=== PATIENT | female | born 1965 | race Caucasian/White ===

== ENCOUNTER → 2016-08-06 | Outpatient (CLI) | payer BC ==
[~2016-08-06] MED LIST: AMPH20TA2 PO; ASPI325T45 PO; ASPI81TA28 PO; BIOTPOW17 PO; CALC600T9 PO; FLUO20CA34 PO; FLUO20CA35 PO; IBUP-1277 PO; MAGN250T22 PO; MISCCAP8 PO; MULT-513 PO; MULT1CHW39 PO; OXYC1TAB3 PO; VITAMIN B COMPLEX SL
--- NOTE | 2016-08-07 13:28 | MAMMOGRAPHY REPORT ---
BILATERAL DIGITAL SCREENING MAMMOGRAM TOMOSYNTHESIS WITH CAD: 08/06/2016 CLINICAL HISTORY: Routine screening. TECHNIQUE: Breast tomosynthesis in addition to standard 2D mammography was performed. Current study was also evaluated with a Computer Aided Detection (CAD) system. COMPARISON: Comparison is made to exams dated: 08/04/2015 mammogram, 11/01/2009 mammogram - [facility], and 12/12/2007. BREAST COMPOSITION: There are scattered areas of fibroglandular density in both breasts. There has been involutional changes comparing to the more remote 2007 and 2009 mammograms. FINDINGS: No suspicious mass, architectural distortion or cluster of microcalcifications is seen. IMPRESSION: ACR BI-RADS CATEGORY 1: NEGATIVE There is no mammographic evidence of malignancy. A 1 year screening mammogram is recommended. The pa tient will receive written notification of the results. Approximately 10% of breast cancers are not detected with mammography. A negative mammographic report should not delay biopsy if a clinically suggestive mass is present. Fern Quiles M.D. ay/:08/06/2016 15:58:05 Packing Machine Can Feeder: Liv CUELLAR(Héctor)(Domo), [facility] letter sent: Normal 1/2 BI-RADS Code: ACR BI-RADS Category 1: Negative
== END | disposition home or self-care (01) ==
LOC: C.MAMM 10:43
PROVIDERS: ATTEND Family Medicine
DX: Z12.31 Encounter for screening mammogram for malignant neoplasm of breast (principal)

== ENCOUNTER → 2016-12-27 | Day surgery (SDC) | payer BC ==
[2016-12-04 15:22] VITALS: Ht 170.2 cm; Wt 76.4 kg
[~2016-12-27] VITALS: Ht 170.2 cm; Wt 76.4 kg
[~2016-12-27] MED LIST changes: -ASPI81TA28 PO; +BUPIVACAINE 0.25% 2.5MG/ML PF 10 ML VIAL ONE; -CALC600T9 PO; -FLUO20CA34 PO; -IBUP-1277 PO; +IOPAMIDOL INJ 61% 15 ML VIAL ONE; +LIDOCAINE HCL 1% MPF 5 ML VIAL ONE; -MAGN250T22 PO; -MISCCAP8 PO; -MULT-513 PO
--- NOTE | 2016-12-27 12:49 | History & Physical Bridge - SC ---
H&P Re-Evaluation Bridge Note: I have examined the patient, reviewed the History & Physical and in the interval since the performance of the History & Physical I have noted the following changes of clinical significance: No changes noted
[2016-12-27 13:10] VITALS: TEMP 37.1
--- NOTE | 2016-12-27 13:14 | Discharge Instructions ---
Discharge Instructions Date of Service Dec 27, 2016. Visit Reason for Visit: Sacroiliitis Discharge Discharge Diagnosis / Problem: low back pain Discharge Goals Goal(s): Decrease discomfort, Improve function Activity Recommendations Activity Limitations: resume your previous activity Anesthesia . Post Anesthesia Instructions: If you have had General Anesthesia or IV Sedation: * Do not drive today. * Resume driving when surgeon permits. * Do not make important decisions or sign legal documents today. * Call surgeon for: 1. Temperature elevations greater than 101 degrees F. 2. Uncontrollable pain. 3. Excessive bleeding. 4. Persistent nausea and vomiting. 5. Medication intolerance (nausea, vomiting or rash). * For nausea and vomiting use only clear liquids such as: tea, soda, bouillon until nausea subsides, then gradually increase diet as tolerated. * If you have any concerns or questions, call your surgeon's office. If physician is unavailable and it is an emergency, call 911 or go to the nearest emergency room. . Diet Recommendations Recommended Home Diet: resume previous diet Procedures Procedures Performed: Right saroiliac joint injection. Pending Studies Studies pending at discharge: no Medical Emergencies . Who to Call and When: Medical Emergencies: If at any time you feel your situation is an emergency, please call 911 immediately. . Non-Emergent Contact Non-Emergency issues call your: Specialist . . "Provider Documentation" section prepared by Mike Villar. .
[2016-12-27 13:21] VITALS: BP 127/79; PULSE 65; O2SAT 97
--- NOTE | 2016-12-27 13:54 | OPERATIVE REPORT ---
DATE OF OPERATION: 12/27/2016 PREOPERATIVE DIAGNOSIS: Right sacroiliitis. POSTOPERATIVE DIAGNOSIS: Same. PROCEDURE: Right sacroiliac joint injection under fluoroscopic guidance. SURGEON: Dr. Mike Villar. INDICATIONS: The patient is a 51-year-old white female who has right sacroiliitis that has not responded to conservative measures of therapy and medications. She has made the decision to proceed with an SI joint injection to provide her with relief of the sacroiliac pain. PHYSICAL EXAMINATION: Pleasant female seated comfortably. She has point tenderness to palpation over the right SI joint increased with pain with extension. She has normal lower extremity strength and a positive Kurtis maneuver on the right side. CONSENT: Verbal and written consent was obtained from the patient. Risks and benefits were reviewed. Risks include but are not limited to abscess and allergic reaction. She wishes to proceed. PROCEDURE: The patient was taken back to the special procedures room of the [facility] where she was maintained in a prone position. Backside was cleansed with Betadine x3 and a dry sterile dressing was applied. Fluoroscope was used to identify the right sacroiliac joint. The overlying skin was anesthetized with 3 mL of lidocaine 1% with a 25 gauge 1.5-inch needle. A 25 gauge 3.5 inch spinal needle was then directed into the SI joint. Isovue contrast 0.25 mL was injected, but showed it to be lateral to the joint. It was repositioned and then noted to be in the joint and then injected with another 0.25 mL of Isovue 300 contrast which then confirmed that the needle tip was within the joint. She then underwent injection after negative aspiration of 40 mg of Depo-Medrol and 1.5 mL of bupivacaine 0.25%. Injection was well tolerated. DISPOSITION: 1. The patient is taken out into the discharge recovery area where she will be discharged home once discharge criteria have been met. 2. Follow up in the [facility] office in 2-4 weeks. I attest to the content of the Intraoperative Record and any orders documented therein. Any exception s are noted below.
== END | disposition home or self-care (01) ==
LOC: X.SURG 12:17
PROVIDERS: ATTEND Physical Medicine & Rehabilitation
DX: M46.1 Sacroiliitis, not elsewhere classified (principal); M41.9 Scoliosis, unspecified

== ENCOUNTER → 2017-01-28 | Outpatient (CLI) | payer BC ==
[~2017-01-28] MED LIST changes: -BUPIVACAINE 0.25% 2.5MG/ML PF 10 ML VIAL ONE; -IOPAMIDOL INJ 61% 15 ML VIAL ONE; -LIDOCAINE HCL 1% MPF 5 ML VIAL ONE
== END | disposition home or self-care (01) ==
LOC: C.RDSM 13:48
PROVIDERS: ATTEND Physical Medicine & Rehabilitation
DX: M25.551 Pain in right hip (principal)

== ENCOUNTER 2020-09-16 04:51 | Observation (INO) ==
--- NOTE | 2020-08-25 16:21 | PAT Medication Instructions ---
Medication Instructions Date of Service August 25, 2020 Home Medications aspirin 81 mg tablet,delayed release 81 mg PO QAM fluoxetine 40 mg capsule 40 mg PO QAM dextroamphetamine-amphetamine 20 mg tablet (Adderall) 40 mg PO QAM hydrocodone 5 mg-acetaminophen 325 mg tablet 1 tab PO BID PRN melatonin 5 mg chewable tablet 5 mg PO HS PRN oxybutynin chloride 15 mg tablet,extended release 24 hr 15 mg PO QAM DO NOT take the morning of surgery dextroamphetamine-amphetamine 20 mg tablet (Adderall) 40 mg PO QAM oxybutynin chloride 15 mg tablet,extended release 24 hr 15 mg PO QAM Take morning of surgery With a small sip of water, OTHERWISE NOTHING TO EAT OR DRINK AFTER MIDNIGHT: aspirin 81 mg tablet,delayed release 81 mg PO QAM (continue as normal unless told otherwise by surgeon) fluoxetine 40 mg capsule 40 mg PO QAM hydrocodone 5 mg-acetaminophen 325 mg tablet 1 tab PO BID PRN (okay to take up to 4 hours prior to surgery if needed) Take evening before surgery hydrocodone 5 mg-acetaminophen 325 mg tablet 1 tab PO BID PRN (if needed) melatonin 5 mg chewable tablet 5 mg PO HS PRN (if needed) Other Notes If you have any questions please call us at [phone] or [phone] or or [phone]
--- NOTE | 2020-08-29 11:41 | Anesthesiology Consultation ---
Date of Service August 29, 2020 Assessment & Plan (1) Encounter for pre-operative examination: Chart Review Chart Review: Acceptable Risk for Surgery (pending response from PCP on hyperkalemia and preop Covid testing results ) and Patient seen in Pre Admission Testing - Wrote note to PCP re: hyperkalemia on preop labs- will await response Pt does not awareness during surgery -states she usually needs more medication Per PAT appointment 08/29/2020, patient return from [place] 08/24/2020. Patient drove via private vehiclestayed in private home/condowears proper PPE when required. No known Covid infection in the past 90 days. Patient vaccinated for Covid. No known Covid positive contacts or Covid related symptoms. Preop Covid testing scheduled 08/24/20= will await results. Educated on importance of self quarantining, social distancing and wearing mask in public both for the patient after Covid testing done Teaching & Discussion Pre-Anesthesia Teaching/Discussion Notes: Instructed NPO after midnight before surgery,except medications with 15 cc of water. Medication instructions provided according to the [facility] guidelines. History Surgery Operation Date: 09/16/20 09:05 Proposed Procedures p Right Total Hip Arthroplasty - Efrani Brennan MD Height/Weight Height: 5 ft 8 in Weight: 83.1 kg Allergies Allergy/AdvReac Type Severity Reaction Status Date / Time Penicillins Allergy Mild RASH Verified 08/19/20 15:04 Medications Home Medications Medication Instructions Recorded Confirmed Last Taken fluoxetine 40 mg capsule 40 mg PO QAM 07/12/20 08/29/20 Unknown dextroamphetamine-amphetamine 20 40 mg PO QAM 08/19/20 08/19/20 Unknown mg tablet (Adderall) hydrocodone 5 mg-acetaminophen 325 1 tab PO BID PRN 08/19/20 08/29/20 Unknown mg tablet melatonin 5 mg chewable tablet 5 mg PO HS PRN 08/19/20 08/29/20 Unknown oxybutynin chloride 15 mg 15 mg PO QAM 08/19/20 08/29/20 Unknown tablet,extended release 24 hr aspirin 325 mg tablet 325 mg PO DAILY 08/29/20 08/29/20 Unknown Past Medical History Medical History ADHD Stable Chronic back pain Depression Osteoarthritis Exercise / Class Metabolic Activity II 4-5 Yardwork/Stairs/Walk up hill (one flight of stairs- no chest pain or SOB) Past Family History Family History Uncle Prostate cancer Hypertension Grandmother Diabetes Father Diabetes Kidney disease Osteoarthritis Hypertension Mother Osteoarthritis Hypertension Other No family history of adverse response to anesthesia Past Surgical History Surgical History History of colonoscopy S/P appendectomy S/P laparoscopic hysterectomy Past Anesthesia History No Hx of Anesthesia Complications (with exception of one episode of awareness with colonoscopy ) and No Family Hx of Anesthesia Complications History of PONV No Hx of PONV and Hx of Motion Sickness (occ) Social History Smoking Status: Former smoker tobacco type: cigarettes Do You Dip or Chew Tobacco: No Smoking End Date: Quit 2015- smoked x 30 years - 1PPD Hx Alcohol Use: Yes alcohol intake frequency: a few times a week Hx Substance Use: Yes substance use type: marijuana Review of Systems Occ snoring - no witnessed apnea - no hx of sleep study Occ reflux- diet dependent- no routine medications Patient denies chest pain, shortness of breath, dyspnea on exertion, cough, wheezing, palpitations. No hx of seizures, stroke, OK. No hx of blood clots or blood transfusions Physical Exam Vital Signs VITALS BP 142/96 (pt will monitor at home and call PCP if elevated) P 68 TEMP 98.6 SP02 100% RESP 16 Constitutional no acute distress ENMT Mouth: no TMJ clicking Thyromental Distance: > or= 3.5 Finger Breadths (3.5) Mallampati Class: II Denies loose or missing teeth Neck neck extension not limited Respiratory normal respiratory effort; no respiratory distress Auscultation: lungs clear to auscultation bilaterally; no wheezes Cardiovascular Rate/Rhythm: regular rate and regular rhythm Heart Sounds: no murmur Vessels: no carotid bruit Musculoskeletal Spine: no pain with cervical ROM Extremities: extremities normal to inspection Psychiatric Orientation: alert Lab Results Anesthesia Preop Results Results Anesthesia Widget: WBC 7.11 K/uL (4.8-10.8) 08/29/20 Hgb 13.3 g/dL (12.0-16.0) 08/29/20 Hct 39.8 % (37-47) 08/29/20 Plt 279 K/uL (130-400) 08/29/20 Na 139 mmol/L (136-145) 08/29/20 K 5.6 mmol/L (3.5-5.1) H 08/29/20 Cl 104 mmol/L (98-107) 08/29/20 CO2 33 mmol/L (21-32) H 08/29/20 BUN 23 mg/dl (7-18) H 08/29/20 Creat 0.81 mg/dl (0.6-1.2) 08/29/20 Glucose Level 91 mg/dl (70-99) 08/29/20 PT 10.3 Seconds (9.0-12.0) 08/29/20 PTT 28.1 Seconds (21.0-31.0) 08/29/20 INR 1.0 (0.9-1.1) 08/29/20 Blood Type A Positive 08/29/20 Antibody Screen NEGATIVE 08/29/20 Lab Comments: Did write note to PCP regarding hyperkalemia Testing Electrocardiogram Date: 08/29/20 Findings: + NSR @ (65bpm) Normal EKG per cardio. Chest X-Ray Date: 08/29/20 Findings: + NAD
[2020-09-16] MEDS ORDERED: TRANEXAMIC ACID 1,000 MG **IV Pre-op IV SCH (06:00)
[2020-09-16] MEDS ORDERED: LR 60ML/HR IV SCH (06:00)
[2020-09-16] MEDS ORDERED: FAMOTIDINE 20 MG TAB PO SCH (06:00)
[2020-09-16] MEDS ORDERED: Scopolamine 1 MG TDSY TD SCH (06:00)
[2020-09-16] MEDS ORDERED: LR 500ML BOLUS, THEN 15ML/HR IV SCH (06:00)
[2020-09-16] MEDS ORDERED: ACETAMINOPHEN 500 MG TAB PO SCH (06:00)
[2020-09-16] MEDS ORDERED: GABAPENTIN 900 MG DOSE PO SCH (06:00)
[2020-09-16] MEDS ORDERED: ceFAZolin 2000MG 2,000 MG/15 ML SYR IV SCH (06:00)
[2020-09-16] MEDS ORDERED: METOCLOPRAMIDE HCL 10 MG TABLET PO SCH (06:00)
[2020-09-16] MEDS ORDERED: fentaNYL citrate 100 MCG/2 ML VIAL ONE (06:27)
[2020-09-16] MEDS ORDERED: PROPOFOL IV EMULSION 10 MG/ML 20 ML VIAL IV ONE ×3 (06:27→07:11)
[2020-09-16] MEDS ORDERED: MIDAZOLAM HCL 1 MG/ML 2ML VIAL ONE (06:27)
[2020-09-16] MEDS ORDERED: MoRPHine SULFATE PF 1 MG/ML 10 ML AMP/VIAL ONE (06:27)
[2020-09-16] MEDS ORDERED: BUPIVACAINE 0.5 % 5 MG/1 ML PF 10ML VIAL ONE (06:32)
[2020-09-16] MEDS ORDERED: EPINEPHrine INJ 1 MG/ML AMP ONE (06:51)
[2020-09-16] MEDS ORDERED: BUPIVACAINE 0.5 % 5 MG/1 ML MPF 30ML VIAL ONE (06:51)
--- NOTE | 2020-09-16 06:55 | History & Physical Bridge Note ---
Date of Service September 16, 2020 History & Physical Bridge Note I have examined the patient, reviewed the History & Physical and in the interval since the performance of the History & Physical I have noted the following changes of clinical significance: no changes noted
[2020-09-16] MEDS ORDERED: HYDROmorphone INJ 1 MG/ML SYRINGE IV PRN (07:21)
[2020-09-16] MEDS ORDERED: PHENYLEPHRINE 100MCG/ML 5ML SYR IV PRN (07:21)
[2020-09-16] MEDS ORDERED: LABETALOL HCL IV 5 MG/ML 20ML IV PRN (07:21)
[2020-09-16] MEDS ORDERED: MEPERIDINE HCL 25 MG/ML CARP/VIAL IV PRN (07:21)
[2020-09-16] MEDS ORDERED: ATROPINE SULFATE 0.1 MG/ML 10ML SYR IV PRN (07:21)
[2020-09-16] MEDS ORDERED: ONDANSETRON INJ 2 MG/ML 2 ML VIAL IV PRN (07:21)
[2020-09-16] MEDS ORDERED: ePHEDrine sulfate 50 MG/ML AMP IV PRN (07:21)
[2020-09-16] MEDS ORDERED: fentaNYL citrate 100 MCG/2 ML VIAL IV PRN (07:21)
--- NOTE | 2020-09-16 08:49 | Operative Report ---
Post Operative Report Pre & Post Diagnosis Operation Date: 09/16/20 07:00 Pre-Op Diagnosis: Right Hip Osteoarthritis Post-Op Diagnosis: Right Hip Osteoarthritis I identified the patient and participated in the time-out.: Yes Procedure Operation Date: 09/16/20 07:00 Actual Procedures p Right Total Hip Replacement(Right) - Efrain Brennan MD Surgeon Efrain Brennan MD Paralegal Internship MINERVA Bishop Estimated Blood Loss 200 Findings Consistent with Post-Op Diagnosis Operative findings revealed advanced right hip DJD. She had pretty significant joint effusion. Some small anterior acetabular osteophytes. She did have grade 4 change of the superior aspect of the femoral head and the acetabulum. Fluids 700 cc Specimens Right femoral head sent for pathology. Drains None Anesthesia Type Spinal MAC Complications none Disposition Accompanied Patient To Recovery: Yes Indications Patient is a 55-year-old fairly active female has had a long history of hip and back problems. She been through extensive conservative treatment for both issues. Over time she became more debilitated by her hip pain. She is fully aware that she got significant back issues as well. X-ray showed advanced hip arthritis. She elected proceed with surgical treatment. She was fully aware that this is not can affect her back problems. Description of Procedure Operative implants consist of: 1 Biomet G7 size 50 mm acetabular shell. 2. Biomet 6.5 cancellous acetabular screws 135 mm length by 30 mm length. 3. [place] hole passenger rate clerk. 4. Highly cross-linked polyethylene liner with a 50 mm outer diameter, 32 mm inner diameter with a fernandez placed inferior and posterior. 5. Carrillo Karaya size 9 KLA femoral stem. 6. +5/32 mm ceramic articular ball. The patient was taken to the operating, identified, and placed on the operating table supine position but a contractors were properly padded. IV antibiotics tried by anesthesia team. A spinal anesthetic and been implemented holding area. Peraza catheter was placed in sterile fashion. The patient then placed in the left lateral cubitus position. An axillary roll was placed. A Stulberg hip positioner was used for positioning. The right hip and leg were then prepped and draped in usual sterile fashion. Posterior lateral approach to the right hip was then performed to a curvilinear incision centered over the greater trochanter. Sharp dissection was carried through subcutaneous tissue down to the IT band gluteal fascia. The IT band gluteal fascia incised longitudinally in line with skin incision. She did have a pretty extensive grade track bursa which had to be resected. The posterior capsule and piriformis and external rotators were then released from the posterior aspect of the hip joint as a single layer. Great care was taken throughout the procedure protect the sciatic nerve at all times. The hip was internally rotated and dislocated. Femoral neck osteotomy cut was made with Final Cut 10 mm above the lesser trochanter. Femoral head was removed and sent for pathology. The femur was retracted anteriorly. Attention drawn the acetabulum. The acetabular labrum was excised. The pulvinar fat was excised. Sequential reaming the acetabular was then performed again with size 43 and progressing up to 49. I did reamed a little bit with a 50 reamer and then placed a 50 mm cup in about 40 degrees lateral opening and 20 degrees of anteversion. It was fixed with two 6.5 cancellous acetabular screws. Trial liner was placed. Some small anterior osteophytes removed anteriorly. Attention drawn the femur. The proximal femur was entered with a cookie-cutter followed by canal finder. I then broached begin the size 8 and progressing to a 9. She had a good cancellous envelope and the 9 broach with a nice and tight. We then trialed the hip. The +5 articular ball seem to recreate soft tissue tension and leg lengths equal. The hip was fully stable full extension and external rotation and flexion to 9 degrees internal rotation about 40 to 50 degrees. I did elect to place a fernandez inferior and posterior to maximize her stability in flexion. We elect to place these implants. All trial implants were removed. An apex hole passenger rate clerk was placed but highly cross-linked polyethylene liner with a fernandez placed inferior and posterior was impacted in position. A DePuy size 9 KLA femoral stem was impacted in position. +5/32 mm ceramic articular ball was placed. Hip was located once again found to be stable. Attention drawn toward closing. The wound was irrigated with copious also pulsatile lavage solution. I did inject locally with 60 cc of absent Marcaine with epinephrine. The posterior capsule and external rotators were then repaired through drill holes in the posterior trochanter with #2 Tycron suture. The IT band gluteal fascia then closed 1 PDS superior suture in a running fashion. Subcutaneous tissue was then closed with 2 layers the deep layer #2 Vicryl suture and subcutaneous tissues with 2 Dexon suture in a buried interrupted fashion the skin was closed skin martha. Leg was then cleaned and dried and a sterile dressing composed of Prevena VAC dressing was applied to the fairly thick soft tissue envelope. Patient was then transferred to the recovery room in stable condition. Patient tolerated procedure well and there were no complications. Elmer Bishop, my physician hospital aides and assistants teacher, was present for the entire procedure. His assistance was essential and required for appropriate patient positioning, prepping and draping, surgical exposure, performing the technical details of the operation, placement the implants, closure of the wound, and placement of the sterile bandage. I attest to the content of the Intraoperative Record and any orders documented therein. Any exceptions are noted below.
--- NOTE | 2020-09-16 09:05 | XRay Report ---
XR hip 1V RT w pelvis HISTORY: 55 years-old Female IN PACU - A/P PELVIS and LATERAL HIP right hip total joint arthroplast y COMPARISON: Hip radiographs 08/08/2020 TECHNIQUE: AP view of the pelvis with crosstable lateral view of the right hip FINDINGS: Right hip total joint arthroplasty. Lateral skin martha are noted along with expected postoperative soft tissue swelling and deep tissue air. No acute fracture, malalignment or unexpected opaque foreig n body. Mild left hip osteoarthritis. IMPRESSION: Right hip total joint arthroplasty with expected postoperative changes. ACT 112: Negative or not required by law. The above report was generated using voice recognition software. It may contain grammatical, syntax o r spelling errors. Electronically signed by: Héctor Clemens M.D. 09/16/2020 9:03 AM
--- NOTE | 2020-09-16 10:16 | Anesthesiology Progress Note ---
Date of Service September 16, 2020 Anesthesia Post Procedure Vital Signs Vital Signs: Temp Pulse Pulse Resp BP Pulse Ox 09/16/20 10:05 64 12 127/80 96 09/16/20 09:55 54 L 13 111/86 95 09/16/20 09:45 54 L 12 135/84 95 09/16/20 09:35 48 L 11 L 121/83 95 09/16/20 09:25 50 L 13 116/88 97 09/16/20 09:15 43 L 14 136/72 99 09/16/20 09:05 75 20 132/84 100 09/16/20 08:55 49 L 11 L 119/65 97 09/16/20 08:45 53 L 10 L 115/71 98 09/16/20 08:39 36.2 C L 100 H 14 128/80 96 09/16/20 05:35 36.6 C 56 L 20 123/87 96 Pain Intensity Right Hip: Pain Intensity: 0 Transfer of Care Handoff Completed per policy Notes Mental Status: alert / awake / arousable Patient Amnestic to Procedure: Yes Nausea / Vomiting: adequately controlled Pain: adequately controlled Airway Patency, RR, SpO2: stable & adequate BP & HR: stable & adequate Hydration State: stable & adequate Neuraxial Anesthesia: was administered and sensory block is resolving Anesthetic Complications: no major complications apparent and Pt Satisfied with anesthetic care
[2020-09-16] MEDS ORDERED: MAGNESIUM HYDROXIDE SUSP 30 ML UDC PO PRN (11:06)
[2020-09-16] MEDS ORDERED: diphenhydrAMINE Capsule 25 MG CAP PO PRN (11:06)
[2020-09-16] MEDS ORDERED: NALOXONE HCL 0.4 MG/1 ML VIAL/CARP IV PRN (11:06)
[2020-09-16] MEDS ORDERED: ALUMINUM/MAGNESIUM SUSP 30 ML UDC PO PRN (11:06)
[2020-09-16] MEDS ORDERED: METOCLOPRAMIDE HCL INJ 5 MG/ML 2 ML VIAL IV PRN (11:06)
[2020-09-16] MEDS ORDERED: bisacodyL 10 MG SUPP PR PRN (11:06)
[2020-09-16] MEDS ORDERED: HYDROmorphone INJ 0.5 MG/0.5 ML SYR IV PRN (11:06)
[2020-09-16] MEDS ORDERED: MELATONIN 3 MG TAB PO PRN (11:15)
[2020-09-16] MEDS: SODIUM CHLORIDE 0.9% 1000ML 1,000 ML IV SCH ×2 (11:19→20:18)
[2020-09-16] MEDS: KETOROLAC 30 MG/ML VIAL IV SCH ×2 (11:59→17:11)
[2020-09-16] MEDS: MULTIVITAMIN TAB PO SCH (11:59)
[2020-09-16] MEDS: OXYBUTYNIN CHLORIDE XL 5 MG TABCR PO SCH (11:59)
[2020-09-16] MEDS: ASPIRIN 81 MG ECTAB PO SCH ×2 (12:00→21:08)
[2020-09-16] MEDS: FLUoxetine HCL 20 MG CAP PO SCH (12:00)
[2020-09-16] MEDS: DOCUSATE SODIUM 100 MG CAP PO SCH ×2 (12:00→21:08)
[2020-09-16] MEDS: AMPHETAMINE ASP/SULF/DEXTRAMPH 10 MG TAB PO SCH (12:19)
[2020-09-16] MEDS: ACETAMINOPHEN 500 MG TAB PO SCH ×2 (12:58→21:09)
[2020-09-16] MEDS ORDERED: TRANEXAMIC ACID / 0.7% NACL 1,000 MG/100 ML BAG IV SCH (15:00)
[2020-09-16] MEDS: oxyCODONE HCL IR 5 MG TAB (IMMEDIATE RELEASE) PO PRN ×2 (15:33→22:15)
[2020-09-16] MEDS: ASCORBIC ACID 500 MG TAB PO SCH (15:34)
[2020-09-16] MEDS: Scopolamine CHECK PATCH PLACEMENT SCH (15:35)
[2020-09-16] MEDS: ceFAZolin 2000MG 2,000 MG/15 ML SYR IV SCH (15:38)
[2020-09-16] MEDS: ONDANSETRON INJ 2 MG/ML 2 ML VIAL IV PRN (15:47)
[2020-09-16] MEDS ORDERED: SENNA 8.6 MG TAB PO SCH (21:00)
[2020-09-17] MEDS: KETOROLAC 30 MG/ML VIAL IV SCH ×3 (00:36→12:19)
[2020-09-17] MEDS: ceFAZolin 2000MG 2,000 MG/15 ML SYR IV SCH (00:36)
[2020-09-17] MEDS: Scopolamine CHECK PATCH PLACEMENT SCH ×2 (00:38→08:23)
[2020-09-17 06:02] LABS: Basophils # (auto) 0.01 K/uL (0-0.2); Basophils % (auto) 0.2 %; Eosinophils # (auto) 0.13 K/uL (0-0.5); Eosinophils % (auto) 2.5 %; Immature Granulocytes # (auto) 0.01 K/uL (0.00-0.02); Immature Granulocytes % (auto) 0.2 %; Lymphocytes # (auto) 1.13 K/uL (1.2-3.4); Lymphocytes % (auto) 21.5 %; Mean Corpuscular Hemoglobin 29.6 pg (25-34); Mean Corpuscular Hgb Conc 33.3 g/dL (32-36); Mean Corpuscular Volume 88.8 fL (80-100); Mean Platelet Volume 9.2 fL (7.4-10.4); Monocytes # (auto) 0.37 K/uL (0.11-0.59); Neutrophils % (auto) 68.6 %; Platelet Count 197 K/uL (130-400); RDW Coefficient of Variation 13.7 % (11.5-14.5); RDW Standard Deviation 44.7 fL (36.4-46.3); Red Blood Count 3.38 M/uL (4.2-5.4); White Blood Count 5.25 K/uL (4.8-10.8)
[2020-09-17] MEDS: ACETAMINOPHEN 500 MG TAB PO SCH (06:14)
[2020-09-17 06:43] LABS: BUN Creatinine Ratio 21.4 (10-20); Calcium 7.8 mg/dl (8.5-10.1); Creatinine Clr Calc Pharmacy 94.7 ml/min; Est GFR (African American) 102.2 ml/min; Est GFR (Non-African American) 88.2 ml/min; Potassium 4.1 mmol/L (3.5-5.1)
[2020-09-17] MEDS ORDERED: dexAMETHasone 10 MG in SYRINGE 0 ML IV SCH (08:00)
[2020-09-17] MEDS: ASCORBIC ACID 500 MG TAB PO SCH (08:23)
[2020-09-17] MEDS: DOCUSATE SODIUM 100 MG CAP PO SCH (08:23)
[2020-09-17] MEDS: FLUoxetine HCL 20 MG CAP PO SCH (08:23)
[2020-09-17] MEDS: OXYBUTYNIN CHLORIDE XL 5 MG TABCR PO SCH (08:23)
[2020-09-17] MEDS: ASPIRIN 81 MG ECTAB PO SCH (08:23)
[2020-09-17] MEDS: AMPHETAMINE ASP/SULF/DEXTRAMPH 10 MG TAB PO SCH (08:23)
[2020-09-17] MEDS: MULTIVITAMIN TAB PO SCH (08:23)
[2020-09-17] MEDS: ONDANSETRON INJ 2 MG/ML 2 ML VIAL IV PRN (08:30)
--- NOTE | 2020-09-17 08:47 | Progress Notes ---
DATE OF SERVICE: 09/17/2020 SUBJECTIVE: A 55-year-old female postoperative day 1 from right hip replacement. She is doing prett y well. Pain has been controlled. She is getting around reasonably well. No chest pain or shortnes s of breath. Not feeling dizzy or lightheaded. Just feels like her leg is a ____ weight. OBJECTIVE: VITAL SIGNS: Temperature 36.9. Vital signs are stable. GENERAL: Shows a pleasant middle-aged female. She is sitting up in her bedside chair, looks comfort able. LUNGS: Clear to auscultation. HEART: Regular rate and rhythm. ABDOMEN: Soft, nontender, nondistended. EXTREMITIES: Grossly neurovascularly intact except as follows: Examination of the right leg reveals a Prevena VAC dressing to be intact. Leg lengths are equal. Thigh is soft and supple. Hip is loca karina. She is neurologically intact. She can dorsiflex and plantarflex her foot appropriately. LABORATORY DATA: Hemoglobin 10.0. Hematocrit 30.0. Electrolytes are stable. ASSESSMENT: A 55-year-old female postoperative day 1 from right hip replacement, doing well. Pain i s controlled. Hip is located. She is neurologically intact. PLAN: 1. DVT prophylaxis includes thigh-high TEDs, SCDs, and aspirin twice a day. 2. PT, OT, weightbear as tolerated. Right total hip protocol. 3. Pain control, doing well with current pain regimen. 4. Disposition: I am going to discharge her home with some home health likely later today if she do es okay in therapy. Job ID: [id number]
== END 2020-09-17 13:31 | disposition home health service (06) ==
LOC: ASU 04:51 → 3E 04:51

== ENCOUNTER 2023-11-27 11:27 | Inpatient (IN) ==
--- NOTE | 2023-11-27 11:35 | Emergency Department Note ---
Impression & Plan Hopelessness, Depression ED Provider Note NAME: ARUNA CROCKETT AGE: 58 SEX: F : 1965 ARRIVES VIA: Ambulance INFORMANT: Patient ED PROVIDER(S): Jovani Cooper MD CHIEF COMPLAINT: Depression, hopelessness, referred PLAN: Disposition: Admit MEDICAL DECISION MAKING: The patient is a 58-year-old woman with a past medical history of hypersomnia, history of alcohol dependence/abuse, marijuana use disorder who presents to the emergency department via EMS referred by her PCP office for evaluation of worsening depressed mood, restlessness and anxiety where she describes passive suicidal ideation where she reports feeling tired and would like to take 1 last "final sleep". However she denies active thoughts of wanting to kill herself. She reports she feels a cycling of hopelessness. She describes racing thoughts and auditory hallucinations but denies any command hallucinations. She reports she has been unable to sleep and may be obtains 3-4 hours of sleep per night. 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 The patient reports she is interested in inpatient psychiatric treatment. Patient reports that she has not had any recurrence of daily alcohol consumption in the past year but has had a drink here and there over the past several months. Last drink was several nights ago. Patient reports intermittent chest pain when she is having extreme anxiety and depressed mood. She denies any pattern of exertional chest pain or pressure. Denies any recent fevers, chills, cough, congestion. On evaluation the patient is anxious appearing but no acute distress, afebrile heart in the 90s and blood pressure 160s/90s and vital signs otherwise stable. She denies active SI/HI but reports cycling of hopelessness and disorganization where she is unable to function. EKG without overt acute ischemia. CXR negative for acute cardiopulmonary process per my personal preliminary review/interpretation. WBC 10.9 K, nonspecific. H/H and platelets within limits. Chemistry without metabolic acidosis. LFTs are unremarkable. Troponin 7.1, within normal limits in setting of atypical symptoms. UA without evidence of infection. Urine drug screen positive for THC. Medical alcohol is undetectable. COVID-19 RNA, JESUS test was negative. The patient was medically cleared. The patient was accepted to 3 [address]. 201 was signed. Triage Nursing notes reviewed and agree them. Prior/external medical records reviewed Vital Signs: reviewed Differential diagnosis: Mood disorder, infection, hypoglycemia, electrolyte abnormalities, cardiac sources, intracerebral event, toxicologic, trauma, neurologic, as well as other pathologies. ER treatment provided: See below. Diagnostics interpreted by me: ECG: Normal sinus rhythm, 74 bpm, no ectopy, no overt ST elevation or depression, QTc 392 QRS 88. Cardiac Monitoring: An order for continuous cardiac monitoring was placed and demonstrated Normal sinus rhythm, 74 bpm, no ectopy. Laboratory studies: See below Imaging studies: See below Consultation(s): Case management HPI: The patient is a 58-year-old woman with a past medical history of hypersomnia, history of alcohol dependence/abuse, marijuana use disorder who presents to the emergency department via EMS referred by her PCP office for evaluation of worsening depressed mood, restlessness and anxiety where she describes passive suicidal ideation where she reports feeling tired and would like to take 1 last "final sleep". However she denies active thoughts of wanting to kill herself. She reports she feels a cycling of hopelessness. She describes racing thoughts and auditory hallucinations but denies any command hallucinations. She reports she has been unable to sleep and may be obtains 3-4 hours of sleep per night. 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 The patient reports she is interested in inpatient psychiatric treatment. Patient reports that she has not had any recurrence of daily alcohol consumption in the past year but has had a drink here and there over the past several months. Last drink was several nights ago. Patient reports intermittent chest pain when she is having extreme anxiety and depressed mood. She denies any pattern of exertional chest pain or pressure. Denies any recent fevers, chills, cough, congestion. ROS: See above HPI for pertinent positives & negatives. A total of 10 systems reviewed and were otherwise negative. VITALS:See Below PHYSICAL EXAMINATION: GENERAL: Awake, alert, anxious-appearing, in no distress HENT: Normocephalic, atraumatic. Oropharynx unremarkable. EYES: Normal conjunctiva. Sclera non-icteric. NECK: Supple. No nuchal rigidity. FROM. No JVD. RESPIRATORY: Clear to auscultation. CARDIAC: Regular rate, normal rhythm. Extremities warm and well perfused. Pulses equal. ABDOMEN: Soft, non-distended. No tenderness to palpation. No rebound or guarding. No masses. MUSCULOSKELETAL: Chest examination reveals no tenderness. The back is symmetrical on inspection without obvious abnormality. There is no CVA tenderness to palpation. No joint edema. LOWER EXTREMITIES: Calves are equal size bilaterally and non-tender. No edema. No discoloration. NEURO: Normal sensorium. No sensory or motor deficits noted. SKIN: No rash or jaundice noted. PSYCH: Denies active SI/HI but reports cycling of hopelessness and disorganization where she is unable to function. Racing thoughts. Insomnia. Jovani Cooper MD Past Med/Surg History Problem List (Updated 11/27/23 @ 23:40 by Jovani Cooper MD) Depression (Acute) Hopelessness (Acute) Hypnagogic hallucinations Hypersomnia Seizure-like activity Developmental venous anomaly of cerebrum Sleep paralysis Seems in dream Hallucination Headache Status post total hip replacement, right Urge incontinence Vulvar dystrophy (Acute) Arthritis of right hip Medical History Encounter for pre-operative examination Depression ADHD Stable Chronic back pain Osteoarthritis Surgical History History of colonoscopy S/P laparoscopic hysterectomy S/P appendectomy Family History Uncle Prostate cancer Hypertension Grandmother Diabetes Father Diabetes Kidney disease Osteoarthritis Hypertension Mother Osteoarthritis Hypertension Other No family history of adverse response to anesthesia Social History Smoking Status: Former smoker Second Hand Exposure: No; Do You Dip or Chew Tobacco: No; Hx Alcohol Use: Yes Hx Substance Use: Yes Prescribed Medications: Marijuana Last Used Substance Other:: last drink was saturday Substance Use Type Other:: years since used Preferred Language: Andorran Communication Ability: Effective Clinical Laboratory Service Teacher Required: No Beliefs That Will Affect Care: None marital status: Current Living Situation: Spouse current occupational status: employed Feels Safe at Home: Yes Gender Identity: Female Assistive Devices: Glasses Allergies Allergies Allergy/AdvReac Type Severity Reaction Status Date / Time Penicillins Allergy Mild RASH Verified 11/27/23 12:00 Home Meds Home Medications Medication Instructions Recorded Confirmed acetaminophen 500 mg capsule 100 mg PO DAILY PRN Pain, Moderate 05/31/23 11/27/23 aspirin 81 mg tablet,delayed 81 mg PO DAILY 05/31/23 11/27/23 release (Adult Low Dose Aspirin) dextroamphetamine-amphetamine 20 40 mg PO BID 05/31/23 11/27/23 mg tablet (Adderall) fluoxetine 20 mg capsule 60 mg PO DAILY 05/31/23 11/27/23 ascorbic acid (vitamin C) 500 mg PO DAILY 11/27/23 11/27/23 multivitamin 1 tab PO DAILY 11/27/23 11/27/23 oxybutynin chloride 15 mg 15 mg PO DAILY PRN urinary 11/27/23 11/27/23 tablet,extended release 24 hr discomfort Previous Rx's Medication Instructions Recorded oxycodone 5 mg tablet 5 - 10 mg (1 - 2 x 5 mg) PO Q6H 09/16/20 PRN pain #40 tabs mirabegron 25 mg tablet,extended 25 mg PO DAILY Urinary urgency 08/17/22 release 24 hr (Myrbetriq) #30 tabs topiramate 50 mg tablet 50 mg PO BID #60 tabs 06/05/23 Results & Data (ED) Vital Signs Vital Signs - 24 hr 11/27/23 11:43 11/27/23 11:43 11/27/23 14:45 Temperature 36.9 C 36.9 C 36.5 C Temperature Source Oral Oral Oral Pulse Rate 96 H Pulse Rate [Finger] 96 H 86 Respiratory Rate 19 19 20 Respiratory Effort / Characteristics Respiratory Depth Deep Respiratory Pattern Regular Blood Pressure 161/94 H Blood Pressure [Left Arm] 161/94 H 136/84 Blood Pressure Mean 116 Blood Pressure Mean [Left Arm] 116 101 Blood Pressure Position [Left Arm] Sitting Pulse Oximetry 95 95 99 Oxygen Delivery Method Room Air Room Air Room Air Sepsis Recent Fever Within 48 Hours No Sepsis New/Unexplained Change in Mental Status No Sepsis Action Taken by Nursing No Action Required 11/27/23 14:45 11/27/23 16:00 Temperature 36.5 C Temperature Source Oral Pulse Rate Pulse Rate [Finger] 84 66 Respiratory Rate 20 18 Respiratory Effort / Characteristics Labored Non-Labored Spontaneous Respiratory Depth Deep Normal Respiratory Pattern Rapid/Deep Blood Pressure Blood Pressure [Left Arm] 138/84 136/83 Blood Pressure Mean Blood Pressure Mean [Left Arm] 102 100 Blood Pressure Position [Left Arm] Sitting Sitting Pulse Oximetry 99 97 Oxygen Delivery Method Room Air Room Air Sepsis Recent Fever Within 48 Hours Sepsis New/Unexplained Change in Mental Status Sepsis Action Taken by Nursing Laboratory Data Attestation: I reviewed the patient's lab results. 11/27/23 11:44 11/27/23 11:44 Lab Results 11/27/23 11/27/23 Range/Units 11:44 12:00 WBC 10.93 H (4.8-10.8) K/ul RBC 4.88 (4.20-5.40) M/uL Hgb 14.8 (12.0-16.0) g/dl Hct 41.3 (37.0-47.0) % MCV 84.6 (80.0-100.0) fL MCH 30.3 (25.0-34.0) pg MCHC 35.8 (32.0-36.0) g/dL RDW Std Deviation 40.6 (36.4-46.3) fL RDW Coeff of Derrek 13.2 (11.5-14.5) % Plt Count 378 (130-400) K/uL MPV 9.4 (9.4-12.4) fL Immature Gran % (Auto) 0.2 % Neut % (Auto) 83.4 % Lymph % (Auto) 11.7 % [place] % (Auto) 4.0 % Eos % (Auto) 0.3 % Baso % (Auto) 0.4 % Neut # (Auto) 9.12 H (1.40-6.50) K/uL Lymph # (Auto) 1.28 (1.20-3.40) K/uL [place] # (Auto) 0.44 (0.11-0.59) K/uL Eos # (Auto) 0.03 (0.00-0.50) K/uL Baso # (Auto) 0.04 (0.00-0.20) K/uL Immature Gran # (Auto) 0.02 (0.01-0.20) K/uL Sodium 142 (136-145) mmol/L Potassium 4.4 (3.5-5.1) mmol/L Chloride 108 H (98-107) mmol/L Carbon Dioxide 25 (21-32) mmol/L Anion Gap 9 (3-11) BUN 25 H (6-23) mg/dl Creatinine 0.86 (0.6-1.2) mg/dl Est Cr Clr Drug Dosing 83.0 ml/min eGFR 79.24 BUN/Creatinine Ratio 29.1 H (10-20) Glucose 111 H (70-99(Fasting)) mg/dl Calcium 10.0 (8.6-10.3) mg/dl Total Bilirubin 0.4 (0.2-1.0) mg/dl AST 16 (13-39) U/L ALT 13 (7-52) U/L Alkaline Phosphatase 63 (34-104) U/L Troponin I High Sens 7.1 (0-14) pg/ml Total Protein 7.7 (6.0-8.3) gm/dl Albumin 4.9 (3.4-5.0) gm/dl Globulin 2.8 (2.5-4.0) gm/dl Albumin/Globulin Ratio 1.8 (0.9-2) TSH 1.226 (0.300-4.500) uIu/ml Urine Color Yellow Urine Appearance Turbid A (Clear) Urine pH 8.5 H (4.5-7.5) Ur Specific [place] 1.017 (1.000-1.030) Urine Protein Negative (Negative) Urine Glucose (UA) Negative (Negative) Urine Ketones Negative (Negative) Urine Blood Negative (Negative) Urine Nitrite Negative (Negative) Urine Bilirubin Negative (Negative) Urine Urobilinogen Negative (Negative) Ur Leukocyte Esterase Negative (Negative) Urine WBC (Auto) 0-5 (0-5) /hpf Urine RBC (Auto) 0-2 (0-2) /hpf U Hyaline Cast (Auto) 0-2 (0-2) /lpf U Epithel Cells (Auto) 0-2 (0-2) /hpf Urine Bacteria (Auto) None Seen (None Seen) Salicylates < 3.0 L (3.0-30) mg/dl Urine Opiates Screen Neg (Neg) Ur Methadone, Qual Neg (Neg) Urine Fentanyl Screen Neg (Neg) Acetaminophen < 3 L (10-30) ug/ml Urine Barbiturates Neg (Neg) Ur Phencyclidine (PCP) Neg (Neg) U Amphetamin/Meth Scrn Neg (Neg) MDMA (Ecstasy) Screen Neg (Neg) U Benzodiazepines Scrn Neg (Neg) Ur Cocaine Metabolite Neg (Neg) U Marijuana (THC) Screen Pos H (Neg) Ethyl Alcohol mg/dL < 10.0 (<10.0) mg/dl SARS-CoV-2, RNA, NAAT NEGATIVE (NEGATIVE) Administered Medications Discontinued Medications Hydroxyzine HCl (Hydroxyzine Hcl 25 Mg Tab) 25 mg PO NOW STA Stop: 11/27/23 13:11 Last Admin: 11/27/23 13:20 Dose: 25 mg Documented By: AHSAN Lorazepam (Lorazepam 2 Mg/1 Ml Vial) 1 mg IV NOW STA Stop: 11/27/23 17:11 Last Admin: 11/27/23 17:12 Dose: Not Given Documented By: Lorazepam (Lorazepam 1 Mg Tab) 1 mg PO NOW STA Stop: 11/27/23 17:12 Last Admin: 11/27/23 17:14 Dose: 1 mg Documented By: Imaging Data Radiologist's Impression: Chest X-Ray 11/27/23 12:35 XR chest 1V portable HISTORY: 58 years-old Female cp acute chest pain COMPARISON: 08/29/2020 TECHNIQUE: AP view the chest FINDINGS: Cardiomediastinal and hilar silhouettes are within normal limits. No pneumothorax, pleural effusion or airspace consolidation. Mid thoracic levoscoliosis. IMPRESSION: No acute process. ACT 112: Negative or not required by law. The above report was generated using voice recognition software. It may contain grammatical, syntax or spelling errors. Electronically signed by: Héctor Clemens M.D. 11/27/2023 1:03 PM Chest X-Ray 11/27/23 12:35 XR chest 1V portable HISTORY: 58 years-old Female cp acute chest pain COMPARISON: 08/29/2020 TECHNIQUE: AP view the chest FINDINGS: Cardiomediastinal and hilar silhouettes are within normal limits. No pneumothorax, pleural effusion or airspace consolidation. Mid thoracic levoscoliosis. IMPRESSION: No acute process. ACT 112: Negative or not required by law. The above report was generated using voice recognition software. It may contain grammatical, syntax or spelling errors. Electronically signed by: Héctor Clemens M.D. 11/27/2023 1:03 PM Discharge Plan Visit Data Chief Complaint: Mental Health Evaluation Stated Complaint: [facility] ED Provider: Jovani Cooper Discharge Problem: Hopelessness, Depression Patient Disposition: Admitted As Inpatient Discharge Instructions Interventions: ED Discharge Assessment Last Done: 11/27/23 17:28 Discharge Problem: Depression Qualifiers: Depression Type: unspecified Qualified Code(s): F32.A - Depression, unspecified
[2023-11-27 12:18] LABS: Appearance Urine Turbid (Clear); Bacteria Urine Automated None Seen (None Seen); Bilirubin Urine Negative (Negative); Blood Urine Negative (Negative); Cast Urine Automated 0-2 /lpf (0-2); Color Urine Yellow; Epithelial Cell Urine Auto 0-2 /hpf (0-2); Glucose Urine UA Negative (Negative); Ketones Urine Negative (Negative); Leukocyte Esterase Urine Negative (Negative); Nitrite Urine Negative (Negative); Protein Urine Negative (Negative); RBC Urine Automated 0-2 /hpf (0-2); Specific Gravity Urine 1.017 (1.000-1.030); Urobilinogen Urine Negative (Negative); WBC Urine Automated 0-5 /hpf (0-5); pH Urine 8.5 (4.5-7.5)
[2023-11-27 12:25] LABS: Acetaminophen < 3 ug/ml (10-30); Salicylate < 3.0 mg/dl (3.0-30)
[2023-11-27 12:28] LABS: Albumin Globulin Ratio 1.8 (0.9-2); Albumin Level 4.9 gm/dl (3.4-5.0); BUN Creatinine Ratio 29.1 (10-20); Bilirubin,Total 0.4 mg/dl (0.2-1.0); Globulin 2.8 gm/dl (2.5-4.0); Potassium 4.4 mmol/L (3.5-5.1); Total Protein 7.7 gm/dl (6.0-8.3)
[2023-11-27 12:29] LABS: Basophils # (auto) 0.04 K/uL (0.00-0.20); Basophils % (auto) 0.4 %; Eosinophils # (auto) 0.03 K/uL (0.00-0.50); Eosinophils % (auto) 0.3 %; Hematocrit (blood only) 41.3 % (37.0-47.0); Hemoglobin 14.8 g/dl (12.0-16.0); Immature Granulocytes # (auto) 0.02 K/uL (0.01-0.20); Immature Granulocytes % (auto) 0.2 %; Lymphocytes # (auto) 1.28 K/uL (1.20-3.40); Lymphocytes % (auto) 11.7 %; Mean Corpuscular Hemoglobin 30.3 pg (25.0-34.0); Mean Corpuscular Hgb Conc 35.8 g/dL (32.0-36.0); Mean Corpuscular Volume 84.6 fL (80.0-100.0); Mean Platelet Volume 9.4 fL (9.4-12.4); Monocytes # (auto) 0.44 K/uL (0.11-0.59); Neutrophils # (auto) 9.12 K/uL (1.40-6.50); Neutrophils % (auto) 83.4 %; Platelet Count 378 K/uL (130-400); RDW Coefficient of Variation 13.2 % (11.5-14.5); RDW Standard Deviation 40.6 fL (36.4-46.3); Red Blood Count 4.88 M/uL (4.20-5.40); White Blood Count 10.93 K/ul (4.8-10.8)
[2023-11-27 12:34] LABS: Amphetamines+Metham, Urine Neg (Neg); Barbiturates, Urine Neg (Neg); Benzodiazepine, Urine Neg (Neg); Cocaine, Urine Neg (Neg); Fentanyl, Urine Neg (Neg); MDMA (Ecstacy), Urine Neg (Neg); Marijuana, Urine Pos (Neg); Methadone, Urine Neg (Neg); Opiate, Urine Neg (Neg); Phencyclidine, Urine Neg (Neg)
[2023-11-27 12:41] LABS: Thyroid Stimulating Hormone 1.226 uIu/ml (0.300-4.500)
--- NOTE | 2023-11-27 13:04 | XRay Report ---
XR chest 1V portable HISTORY: 58 years-old Female cp acute chest pain COMPARISON: 08/29/2020 TECHNIQUE: AP view the chest FINDINGS: Cardiomediastinal and hilar silhouettes are within normal limits. No pneumothorax, pleural effusion o r airspace consolidation. Mid thoracic levoscoliosis. IMPRESSION: No acute process. ACT 112: Negative or not required by law. The above report was generated using voice recognition software. It may contain grammatical, syntax o r spelling errors. Electronically signed by: Héctor Clemens M.D. 11/27/2023 1:03 PM
[2023-11-27] MEDS: hydrOXYzine HCl 25 MG TAB PO STA (13:20)
--- NOTE | 2023-11-27 15:04 | Electrocardiogram Report ---
Test Reason : Blood Pressure : */* mmHG Vent. Rate : 74 BPM Atrial Rate : 74 BPM P-R Int : 148 ms QRS Dur : 88 ms QT Int : 354 ms P-R-T Axes : 33 -18 26 degrees QTcB Int : 392 ms Normal sinus rhythm Normal ECG When compared with ECG of 29-Aug-2020 11:41, No significant change was found Confirmed by Julian Kraft ([id number]) on 11/27/2023 3:04:02 PM Referred By: REFERRED SELF Confirmed By: Julian Kraft
[2023-11-27] MEDS: LORazepam 2 MG/1 ML VIAL IV STA (17:12)
[2023-11-27] MEDS: LORazepam 1 MG TAB PO STA (17:14)
[2023-11-27 17:30] VITALS: O2SAT 98
[2023-11-27] MEDS ORDERED: hydrOXYzine HCl 25 MG TAB PO PRN (17:57)
[2023-11-27] MEDS ORDERED: ALUMINUM/MAGNESIUM SUSP 30 ML UDC PO PRN (17:57)
[2023-11-27] MEDS ORDERED: BISMUTH SUBSALICYLATE 262 MG CHEW PO PRN (17:57)
[2023-11-27] MEDS ORDERED: MAGNESIUM HYDROXIDE SUSP 30 ML UDC PO PRN (17:57)
[2023-11-27] MEDS ORDERED: SODIUM CHLORIDE 0.65% NA SOLN 45 ML (OCEAN) PRN (17:57)
--- NOTE | 2023-11-28 08:53 | History & Physical ---
Date of Service November 28, 2023 Impression / Recommendations Impression ARUNA CROCKETT is a 58-year-old woman who currently lives in [place] with her , has a history of BPAD and alcohol use disorder, and was admitted on 11/27/23 16:56 on a 201 voluntary commitment for worsening anxiety, SI and lack of sleep and appetite with auditory hallucinations and difficulty functioning. Diagnostically consistent with unspecified mood disorder and psychosis with differential including BPAD current mixed episode vs MDD with psychotic features and anxious distress vs primary psychotic disorder vs substance-induced from cannabis use. Has been using alcohol and has a history of alcohol use disorder but does not identify current symptoms of feeling out of control, excessive use nor negative consequences from this. Will continue to explore her use pattern and sense of control with her use and option for naltrexone if needed (she has been filling but not taking opioids) as her mood symptoms/psychosis improve. Discussed medication treatment options in detail. Discussed risks, benefits and alternatives. Patient would like to start and consented to Abilify for psychosis and depression augmentation and continuation of fluoxetine for major depression vs mixed mood episode of BPAD. Reviewed side effects including but not limited to: GI, [place], sexual side effects with fluoxetine and movement (TD, NMS), cardiac (QTc prolongation), and metabolic (stroke, insulin resistance) and necessity for fasting lipid and glucose labwork and AIMS done with score of 0 with abilify. The patient's use history suggests possible substance use disorder. Motivational interviewing was done as a brief intervention. Intervention was greater than 5 minutes in length and included assessing readiness to quit, advice on how to reduce or abstain and to set a specific goal for this hospitalization. aircraft layout worker will also assist in anticipating barriers to reducing or abstaining from substance use and in problem-solving for solutions to those problems while arranging for referral to appropriate treatment. The patient is in contemplative stage with regards to transtheoretical model of change. Recommended decreasing consumption due to disinhibiting effects and potential for worsening psychiatric symptoms. MNPR due to ideas of reference/psychosis with impulsivity Overall I spent a total of 80 minutes for this admission including review of chart records, review of labwork, direct evaluation of the patient, counseling the patient, ordering medication, risk assessment, discussion with the psychiatric liason RN and documentation in the electronic health record. (1) Unspecified mood [affective] disorder: (2) Psychotic disorder: (3) Depression with suicidal ideation: (4) Anxiety and depression: (5) Cannabis use with anxiety disorder: Plan 11/28/2023: The patient was admitted to the [facility]) on q15 min checks (behavioral with suicide precautions) for safety. The patient will participate in group, recreational, and milieu therapies and will be offered additional individual and family sessions as clinically appropriate. -Medications: * Start Abilify 5mg qAM po & 2.5mg BID po prn * c/w Fluoxetine 60mg daily -Mood Disorder Questionnaire -Will need outpatient psychiatric provider, therapist Inventory Assets Strengths: supportive relationships, willing to get treatment Needs: safety and stabilization, medication adjustment, additional coping skills, increased outpatient services Suicide Risk Level Suicide Risk Level: High-Moderate (q15 min suicide checks) (depression with mixed mood symptoms, psychosis and significant guilt and intermittent SI but feels safe in the hospital and feels able to ask for support) Risk Factors Assessment Male: No : Yes Do You Have Access To A Gun?: No Health Problems: No Mental Health Diagnoses: Yes Substance Use Disorders: Yes (hx of alcohol use d/o, cannabis use) Previous Attempt: Yes Family History of Suicide: No Previous Psychiatric Hospitalization: Yes Hopelessness: Yes Protective Factors Assessment Hoahaoism Beliefs: Yes : Yes Employed: Yes (Realtor) Stable Relationships: Yes Supportive Family: Yes Good Rapport with Provider: Yes Psychiatric History Identifying Data ARUNA CROCKETT is a 58-year-old woman who currently lives in [place] with her , has a history of BPAD and alcohol use disorder, and was admitted on 11/27/23 16:56 on a 201 voluntary commitment for worsening anxiety, SI and lack of sleep and appetite with auditory hallucinations and difficulty functioning. Chief Complaint "I have to try something because I'm going nuts". History of Present Illness She presents for psychiatric admission for finding messages and connections in things she sees and hears, as well as severe depression and anxiety in the context of guilt about hiding things from her and feeling like "when I read something or hear a song it's like it's talking to me". She reports finding a lot of meaning and "messages" from things around her like music, or TV show or seeing something written like a quote. She finds the older she gets the more "hard it is". She recalls yesterday making the statement "I'd rather then embarrass the people that I love". She feels she can't be fully honest with her family because she doesn't want to hurt them but she has a sense that "if I'm honest with them it's going to kill them". She notes she feels like she is "living such a lie here" and then reflects on her history of initially moving to this area. States intense concern she'll leave a legacy of "being a fraud". She feels like "I'm in purgatory" and identifies this as closely tied to her challenges with substance use. She describes feeling like "I'm going back and forth in time", noting that "it feels like I'm being picked up and moved around in time". She states in recent days it's felt like "something is going to blow up" so she hit an item in her house and it knocked something off the wall and felt out of control with this sense of "I'm going to destroy this house". She notes she lied to her when he noticed the picture she hit on the wall was ajar and said she knocked into it and this lie caused her intense guilt. She recalls a recent event in which she was on a zoom meeting and had her camera off and took off her clothes and "knew I had this appointment with Dr. Cruz and it feels really weird like I'm living this parallel life where if I get better then he'll get worse". She has been using cannabis to help calm herself down in these moments. She feels like her behavior has been bizarre and "I've been afraid to be around people because I think I'm going to act inappropriately and then will be judged for having a problem". Recently she feels like she's been in a constant "fight or flight" state for the last 6-8 weeks and it feels like "a constant hangover". She reports experiencing depressive symptoms for the past 6-8 weeks, including constant crying and difficulty sleeping. Sleep has been poor, with only 4-5 hours per night and waking up every hour. She also experiences extreme anxiety and panic attacks, which have been increasing in frequency. She endorses symptoms of isabel/psychosis including ideas of reference (feeling that everything she sees or hears is connected to her and trying to tell her something), impulsive behavior, and an incident where she felt the world was going to blow up and had to stop herself from destroying her house. She reports feeling like she is going back and forth in time and that her body has been lifted up and out of time. She expresses guilt and fear about being honest with her family due to potentially hurting or embarrassing them. She describes feeling like she is living a lie and hiding aspects of her life from her loved ones, including her cannabis use which she uses to manage symptoms.She has a history of substance use, including alcohol and marijuana, and has been through residential treatment in the past. She has not been taking her prescribed Adderall and has been using cannabis instead, though it only provides temporary relief. She is currently prescribed Adderall but reports not taking it. She expresses a wish for a medication that everyone could accept. She is currently prescribed psychiatric medications of fluoxetine (has been on this for about 5 years, she's not sure if it helps) and Adderall (hasn't been using this, gives script to a friend in exchange for cannabis). Topimax for weight loss and headaches. Psychiatric ROS notable for current symptoms of depression, anxiety, isabel, and psychosis. History of bipolar disorder and substance use disorder. She reports history of past episodes of isabel (cannot recall timing of when this last occurred, reports it seems more like hypomania in terms of "doing things in a euphoric way around people that I'm not really doing", recalls taking off her bathrobe and walking around the house naked during a zoom meeting and was relieved she didn't have her camera on). Past Psychiatric History Current Psychiatric Diagnosis: Depression, Anxiety Outpatient Services: none Previous Psych Admissions: [facility] 2006 After overdose in 1995 Do You Have Access To A Gun?: No History of Previous Suicide Attempt: Yes (1995) Describe Attempts in the Past: overdose on aspirin in 1995 Past Medication Trials: zoloft (bad side effects, brought out anger and aggression) possible hx of Depakote but unsure Allergies Allergy/AdvReac Type Severity Reaction Status Date / Time Penicillins Allergy Mild RASH Verified 11/27/23 12:00 Home Medications Medication Instructions Recorded Confirmed Type oxycodone 5 mg tablet 5 - 10 mg (1 - 2 x 5 mg) PO Q6H 09/16/20 11/27/23 Rx PRN pain #40 tabs mirabegron 25 mg tablet,extended 25 mg PO DAILY Urinary urgency 08/17/22 11/27/23 Rx release 24 hr (Myrbetriq) #30 tabs acetaminophen 500 mg capsule 100 mg PO DAILY PRN Pain, Moderate 05/31/23 11/27/23 History aspirin 81 mg tablet,delayed 81 mg PO DAILY 05/31/23 11/27/23 History release (Adult Low Dose Aspirin) dextroamphetamine-amphetamine 20 40 mg PO BID 05/31/23 11/27/23 History mg tablet (Adderall) fluoxetine 20 mg capsule 60 mg PO DAILY 05/31/23 11/27/23 History topiramate 50 mg tablet 50 mg PO BID #60 tabs 06/05/23 11/27/23 Rx ascorbic acid (vitamin C) 500 mg PO DAILY 11/27/23 11/27/23 History multivitamin 1 tab PO DAILY 11/27/23 11/27/23 History oxybutynin chloride 15 mg 15 mg PO DAILY PRN urinary 11/27/23 11/27/23 History tablet,extended release 24 hr discomfort Family History Family History of: Doesn't Know Alcohol History Hx of Alcohol Use Over the Past 12 Months: Yes AUDIT Total Score: 5 Describes history of alcohol use with periods of sobriety, treatment. She describes the process of starting to think she can balance her use and it often then slowly spirals. Recalls her alcohol use starting in high school after a back injury. Has been to residential substance use treatment: one time She notes that "alcohol is just something that it's something I should just stay away from". Current alcohol use is "minimal", maybe one drink per week Smoking Use Have You Smoked or Used Tobacco Products in the Last 30 Days: No tobacco type: cigarettes Smoking Status: Former smoker Substance History Hx of Prescription Med Misuse Over the Past 12 Months: No Hx of Over the Counter Med Misuse Over the Past 12 Months: No Hx of Inhalent Misuse Over the Past 12 Months: No Hx of Organic Substance Use Over the Past 12 Months: Yes Hx of Illegal Substances/Street Drug Use Over Past 12 Months: No Problems as a Result of Past Substance Use: None Identified Problems as a Result of Past Substance Use Comments: alcohol briefly described rehab but didn't explain, said it was years She notes she also likes cannabis as "it's very calming for me" but notes that it's stigma of being illegal and her 's view of it as "a gateway to other things" has caused her to hide her cannabis use from her and family. She notes that only some of her closest friends know. Cannabis use via vape and likes that it's calming, helps her be accepting and not feel like she needs to overly controlling. She doesn't like that it can cause some paranoia and has to hide her use from her and feels like "I'm not taking it the right way" because she doesn't have a medical card. Wishes there was an acceptable medication substitute so "I could move on and not feel guilt all the time". Personal History Living Arrangements: Home Childhood: Reports druze upbringing, loving family Highest Grade Completed: Some College (4-5 years but did not graduate) Employment Status: Sole [employer] Employed ([employer]) Marital Status: (15 years) Number Of Children: step-children, (with her current two step-daughters 24 & 27) Beliefs That Will Affect Care: None Current Legal Problems: No Hx Legal Problems: No Patient History Medical History Encounter for pre-operative examination Depression ADHD Stable Chronic back pain Osteoarthritis Surgical History History of colonoscopy S/P laparoscopic hysterectomy S/P appendectomy Family History Uncle Prostate cancer Hypertension Grandmother Diabetes Father Diabetes Kidney disease Osteoarthritis Hypertension Mother Osteoarthritis Hypertension Other No family history of adverse response to anesthesia Social History Smoking Status: Former smoker Second Hand Exposure: No; Do You Dip or Chew Tobacco: No; Hx Alcohol Use: Yes Hx Substance Use: Yes Prescribed Medications: Marijuana Last Used Substance Other:: last drink was saturday Substance Use Type Other:: years since used Preferred Language: Burkinan Communication Ability: Effective Irrigation Teacher Required: No Beliefs That Will Affect Care: None marital status: Current Living Situation: Spouse current occupational status: employed Feels Safe at Home: Yes Gender Identity: Female Assistive Devices: Glasses Review of Systems Review of Systems: All systems reviewed & are unremarkable except as noted in HPI & below (chest tightness "from stress" ) Physical Exam Psychiatric: Orientation: alert and oriented x 3 Apperance: appropriately dressed and appropriately groomed Eye Contact: good eye contact Motor Behavior: no abnormal motor movements Speech: normal rate/rhythm/volume of speech Affect: + depressed affect, + anxious affect and + tearful affect Mood: + depressed mood and + anxious mood Thought Process: + tangential thought process, + looseness of associations and + perseveration Thought Content: + ideas of reference, + derealization, + persecution, + hopelessness, + worthlessness and + guilt (significant) Suicidal Thoughts: denies suicidal plan and denies suicidal intent; + reports suicidal thoughts (intermittent) Homicidal Thoughts: denies homicidal thoughts Hallucinations: no auditory hallucinations (internal voice) and no visual hallucinations Cognition: recent memory grossly intact and language grossly intact; + remote memory not intact and + attention not intact Estimated Intelligence: consistent with education level Insight: + fair insight Judgment: + limited judgement Vital Signs (Past 24 Hours): Last Vital Signs Temp 35.3 C L 11/28/23 06:00 Pulse 89 11/28/23 06:18 Resp 18 11/28/23 06:00 BP 128/87 11/28/23 06:18 Pulse Ox 98 11/27/23 17:28 O2 Del Method Room Air 11/27/23 17:28 Exam Statement: A physical exam was performed in the ED by Dr. Cooper for the purposes of medical clearance. I accept that physical as correct and adequate for the purposes of the inpatient physical exam. Results & Data ([facility]) Laboratory Results Laboratory Results - last 24 hr 11/27/23 11/27/23 11:44 12:00 WBC 10.93 H RBC 4.88 Hgb 14.8 Hct 41.3 MCV 84.6 MCH 30.3 MCHC 35.8 RDW Std Deviation 40.6 RDW Coeff of Derrek 13.2 Plt Count 378 MPV 9.4 Immature Gran % (Auto) 0.2 Neut % (Auto) 83.4 Lymph % (Auto) 11.7 [place] % (Auto) 4.0 Eos % (Auto) 0.3 Baso % (Auto) 0.4 Neut # (Auto) 9.12 H Lymph # (Auto) 1.28 [place] # (Auto) 0.44 Eos # (Auto) 0.03 Baso # (Auto) 0.04 Immature Gran # (Auto) 0.02 Sodium 142 Potassium 4.4 Chloride 108 H Carbon Dioxide 25 Anion Gap 9 BUN 25 H Creatinine 0.86 Est Cr Clr Drug Dosing 83.0 eGFR 79.24 BUN/Creatinine Ratio 29.1 H Glucose 111 H Calcium 10.0 Total Bilirubin 0.4 AST 16 ALT 13 Alkaline Phosphatase 63 Troponin I High Sens 7.1 Total Protein 7.7 Albumin 4.9 Globulin 2.8 Albumin/Globulin Ratio 1.8 TSH 1.226 Urine Color Yellow Urine Appearance Turbid A Urine pH 8.5 H Ur Specific [place] 1.017 Urine Protein Negative Urine Glucose (UA) Negative Urine Ketones Negative Urine Blood Negative Urine Nitrite Negative Urine Bilirubin Negative Urine Urobilinogen Negative Ur Leukocyte Esterase Negative Urine WBC (Auto) 0-5 Urine RBC (Auto) 0-2 U Hyaline Cast (Auto) 0-2 U Epithel Cells (Auto) 0-2 Urine Bacteria (Auto) None Seen Salicylates < 3.0 L Urine Opiates Screen Neg Ur Methadone, Qual Neg Urine Fentanyl Screen Neg Acetaminophen < 3 L Urine Barbiturates Neg Ur Phencyclidine (PCP) Neg U Amphetamin/Meth Scrn Neg MDMA (Ecstasy) Screen Neg U Benzodiazepines Scrn Neg Ur Cocaine Metabolite Neg U Marijuana (THC) Screen Pos H U Marijuana THC Carboxy Pending Drug Screen Comment Pending Ethyl Alcohol mg/dL < 10.0 SARS-CoV-2, RNA, NAAT NEGATIVE Current Inpatient Medications Current Inpatient Medications: Current Inpatient Medications Acetaminophen (Acetaminophen 325 Mg Tab) 650 mg PO Q4H PRN PRN Reason: Headache or Minor Fever Stop: 12/27/23 17:56 Al Hydrox/Mg Hydrox/Simethicone (Aluminum/Magnesium Susp 30 Ml Udc) 30 ml PO Q4H PRN PRN Reason: GI Upset Stop: 12/27/23 17:56 Bismuth Subsalicylate (Bismuth Subsalicylate 262 Mg Chew) 2 tab PO Q30M PRN PRN Reason: Loose Stool/Diarrhea Stop: 12/27/23 17:56 Hydroxyzine HCl (Hydroxyzine Hcl 25 Mg Tab) 50 mg PO HSZ PRN PRN Reason: Insomnia Stop: 12/27/23 17:56 Hydroxyzine HCl (Hydroxyzine Hcl 25 Mg Tab) 25 mg PO Q4H PRN PRN Reason: Anxiety Stop: 12/27/23 17:56 Magnesium Hydroxide (Magnesium Hydroxide Susp 30 Ml Udc) 30 ml PO DAILY PRN PRN Reason: Constipation Stop: 12/27/23 17:56 Sodium Chloride (Sodium Chloride 0.65% Na Soln 45 Ml ([place])) 1 - 2 sprays NA PRN PRN PRN Reason: Nasal Dryness/Congestion Stop: 12/27/23 17:56
[2023-11-28] MEDS ORDERED: ARIPIprazole SOLN 10 MG/10 ML UDP PO PRN (11:35)
[2023-11-28] MEDS ORDERED: ARIPIprazole 1 MG/ML ORAL SOLN 150 ML BTL PO PRN (11:42)
[2023-11-28] MEDS: hydrOXYzine HCl 25 MG TAB PO PRN (12:10)
[2023-11-28] MEDS: FLUoxetine HCL 20 MG CAP PO SCH (12:11)
[2023-11-28] MEDS: TOPIRAMATE 50 MG TAB PO SCH (12:11)
[2023-11-28] MEDS: ARIPiprazole 5 MG TAB PO SCH (13:05)
[2023-11-28] MEDS: ACETAMINOPHEN 325 MG TAB PO PRN (18:04)
[2023-11-28] MEDS: INFLUENZA VACC TS2024-25(6m+)/PF (IIV3) 0.5mL Syr IM ONE (21:31)
[2023-11-29 06:23] VITALS: RESP 16
--- NOTE | 2023-11-29 08:28 | Psychiatric Progress Note ---
Date of Service November 29, 2023 Impression / Recommendations Impression ARUNA CROCKETT is a 58-year-old woman who currently lives in [place] with her , has a history of BPAD and alcohol use disorder, and was admitted on 11/27/23 16:56 on a 201 voluntary commitment for worsening anxiety, SI and lack of sleep and appetite with auditory hallucinations and difficulty functioning. Diagnostically consistent with unspecified mood disorder and psychosis with differential including BPAD current mixed episode vs MDD with psychotic features and anxious distress vs primary psychotic disorder vs substance-induced from cannabis use. Has been using alcohol and has a history of alcohol use disorder but does not identify current symptoms of feeling out of control, excessive use nor negative consequences from this. Will continue to explore her use pattern and sense of control with her use and option for naltrexone if needed (she has been filling but not taking opioids) as her mood symptoms/psychosis improve. A: Mood Disorder Questionnaire consistent with history of likely hypomanic episodes. Suspect current episode of BPAD, current mixed mood episode with psychosis. Some lessening of ideas of reference today but still with mood symptoms, still feeling like in a dream-state at times/difficulty determining what is real. Reviewed labwork-HbA1c is normal and fasting lipid panel reviewed and stable for use of abilify. She consents to starting trazodone to help with s leep and depression, reviewed risks/benefits/alternatives and side effects including but not limited to: sedation, weight gain. MNPR due to ideas of reference/psychosis with impulsivity Overall, I spent a total of 35 minutes on this case including meeting with the patient, reviewing the chart, nursing report, multidisciplinary team meeting, orders, and documentation. (1) Bipolar disorder, curr episode mixed, severe, with psychotic features: (2) Unspecified mood [affective] disorder: (3) Psychotic disorder: (4) Depression with suicidal ideation: (5) Anxiety and depression: (6) Cannabis use with anxiety disorder: Plan 11/29/2023: -Start Trazodone 50mg HS with additional 50mg prn for insomnia 11/28/2023: The patient was admitted to the [facility] ([facility] mental health unit) on q15 min checks (behavioral with suicide precautions) for safety. The patient will participate in group, recreational, and milieu therapies and will be offered additional individual and family sessions as clinically appropriate. -Medications: * Start Abilify 5mg qAM po & 2.5mg BID po prn * c/w Fluoxetine 60mg daily -Mood Disorder Questionnaire -Fasting lipid panel and HbA1c -Will need outpatient psychiatric provider, therapist Inventory Assets Strengths: supportive relationships, willing to get treatment Needs: safety and stabilization, medication adjustment, additional coping skills, increased outpatient services Suicide Risk Level Suicide Risk Level: High-Moderate (q15 min suicide checks) (depression with mixed mood symptoms, psychosis and significant guilt and intermittent SI but feels safe in the hospital and feels able to ask for support) Risk Factors Assessment Male: No : Yes Do You Have Access To A Gun?: No Health Problems: No Mental Health Diagnoses: Yes Substance Use Disorders: Yes (hx of alcohol use d/o, cannabis use) Previous Attempt: Yes Family History of Suicide: No Previous Psychiatric Hospitalization: Yes Hopelessness: Yes Protective Factors Assessment Gnosticist Beliefs: Yes : Yes Employed: Yes (Realtor) Stable Relationships: Yes Supportive Family: Yes Good Rapport with Provider: Yes Interval History Identifying Information ARUNA CROCKETT is a 58-year-old woman who currently lives in [place] with her , has a history of BPAD and alcohol use disorder, and was admitted on 11/27/23 16:56 on a 201 voluntary commitment for worsening anxiety, SI and lack of sleep and appetite with auditory hallucinations and difficulty functioning. Chief Complaint "I think I'm doing better than yesterday, yesterday was a day full of tears and anxiety". Review of Systems Sleep Information Total Hours of Sleep: 8 Meal Information Percent Meal Consumed - Breakfast: 100 Percent Meal Consumed - Lunch: 100 Percent Meal Consumed - Dinner: 90 Subjective Subjective Patient was seen & assessed and interval progress reviewed with treatment team nursing and social work. Very tearful, couldn't tolerate groups. Discussed staff marriage issues. Heightened jewish beliefs discussed yetserday including guilt about how her marriage started (feels God is punishing her) and from hiding her substance use. Struggled with sleep, notes she may be perimenopausal and struggles with temperature variations at night. She reports having the sense of being in a dream overnight but today notes "today is the first day I'm not feeling like everything is some sort of message". She recalls feeling overwhelmed by the news prior to admission and this morning tolerated it being off without feeling completely overwhelmed. Tolerating the initiation of abilify, had a bad headache this morning but denies any other side effects. She feels like it's become "so interchangeable the sense of dream life vs real life" and still was struggling with this last evening. Tearful at times. Feels grateful to be getting treatment, after struggling with her symptoms for so long. Physical Exam Psychiatric Orientation: alert and oriented x 3 Apperance: appropriately dressed and appropriately groomed Eye Contact: good eye contact Motor Behavior: no abnormal motor movements Speech: normal rate/rhythm/volume of speech Affect: + depressed affect, + anxious affect, + tearful affect and + labile affect Mood: + depressed mood and + anxious mood Thought Process: + circumstantial thought process and + looseness of associations Thought Content: + delusions, + derealization, + persecution, + hopelessness, + worthlessness and + guilt Suicidal Thoughts: denies suicidal plan and denies suicidal intent; + reports suicidal thoughts (intermittent) Homicidal Thoughts: denies homicidal thoughts Hallucinations: no auditory hallucinations (internal voice) and no visual hallucinations Cognition: recent memory grossly intact and language grossly intact; + remote m samuel not intact and + attention not intact (a little better today) Estimated Intelligence: consistent with education level Insight: + fair insight Judgment: + limited judgement Vital Signs (Past 24 Hours) Last Vital Signs Temp 36.0 C L 11/29/23 06:00 Pulse 75 11/29/23 06:00 Resp 16 11/29/23 06:00 BP 138/89 11/29/23 06:00 Pulse Ox 98 11/27/23 17:28 O2 Del Method Room Air 11/27/23 17:28 Results & Data ([facility]) Current Inpatient Medications Current Inpatient Medications: Current Inpatient Medications Acetaminophen (Acetaminophen 325 Mg Tab) 650 mg PO Q4H PRN PRN Reason: Headache or Minor Fever Stop: 12/27/23 17:56 Last Admin: 11/28/23 18:04 Dose: 650 mg Al Hydrox/Mg Hydrox/Simethicone (Aluminum/Magnesium Susp 30 Ml Udc) 30 ml PO Q4H PRN PRN Reason: GI Upset Stop: 12/27/23 17:56 Aripiprazole (Aripiprazole 5 Mg Tab) 5 mg PO QAM KARON Stop: 12/28/23 11:44 Last Admin: 11/28/23 13:05 Dose: 5 mg Aripiprazole (Aripiprazole 1 Mg/Ml Oral Soln 150 Ml Btl) 2.5 mg PO BID PRN PRN Reason: psychosis Stop: 12/28/23 11:41 Bismuth Subsalicylate (Bismuth Subsalicylate 262 Mg Chew) 2 tab PO Q30M PRN PRN Reason: Loose Stool/Diarrhea Stop: 12/27/23 17:56 Fluoxetine HCl (Fluoxetine Hcl 20 Mg Cap) 60 mg PO DAILY KARON Stop: 12/28/23 10:29 Last Admin: 11/28/23 12:11 Dose: 60 mg Hydroxyzine HCl (Hydroxyzine Hcl 25 Mg Tab) 50 mg PO HSZ PRN PRN Reason: Insomnia Stop: 12/27/23 17:56 Hydroxyzine HCl (Hydroxyzine Hcl 25 Mg Tab) 25 mg PO Q4H PRN PRN Reason: Anxiety Stop: 12/27/23 17:56 Last Admin: 11/28/23 18:06 Dose: 25 mg Magnesium Hydroxide (Magnesium Hydroxide Susp 30 Ml Udc) 30 ml PO DAILY PRN PRN Reason: Constipation Stop: 12/27/23 17:56 Sodium Chloride (Sodium Chloride 0.65% Na Soln 45 Ml ([place])) 1 - 2 sprays NA PRN PRN PRN Reason: Nasal Dryness/Congestion Stop: 12/27/23 17:56 Topiramate (Topiramate 50 Mg Tab) 50 mg PO BID KARON Stop: 12/28/23 10:29 Last Admin: 11/28/23 21:28 Dose: 50 mg Mental Health & Subst Abuse Tx Psychiatrist Date Of Appointment With Psychiatric Provider: None Therapist Name of Therapist: N/A Date of Therapist Appointment: N/A Surveyor Hydrographic Name of Surveyor Hydrographic: N/A Post Discharge Appointments Primary Care Physician Name Of Family Doctor/PCP: Dr. Franco
[2023-11-29 08:59] LABS: Estimated Average Glucose 103 mg/dl; Hemoglobin A1C 5.2 % (4.5-5.6)
[2023-11-29] MEDS ORDERED: traZODone HCL 50 MG TAB PO PRN (15:14)
[2023-11-29 15:32] LABS: Marijuana Quant, GCMS Urine 47 ng/mL (<5)
[2023-11-29] MEDS: traZODone HCL 50 MG TAB PO SCH (21:52)
--- NOTE | 2023-11-30 15:39 | Psychiatric Progress Note ---
Date of Service November 30, 2023 Impression / Recommendations Impression ARUNA CROCKETT is a 58-year-old woman who currently lives in [place] with her , has a history of BPAD and alcohol use disorder, and was admitted on 11/27/23 16:56 on a 201 voluntary commitment for worsening anxiety, SI and lack of sleep and appetite with auditory hallucinations and difficulty functioning. Diagnostically consistent with unspecified mood disorder and psychosis with differential including BPAD current mixed episode vs MDD with psychotic features and anxious distress vs primary psychotic disorder vs substance-induced from cannabis use. A: Presents recurrent distressing dreams, physical anxiety. Had difficult childhood with neglect and isolation. Concern for dissociative episodes. Recurrent marijuana and alcohol use to cope with symptoms and escape problems. We will continue to clarify underlying diagnosis; differential includes mixed depressive episode, unipolar depression, PTSD. Plan to start doxazosin 1 mg at bedtime for nightmares; medication side effects and adverse effects discussed with patient and agreeable. MNPR due to ideas of reference/psychosis with impulsivity Overall, I spent a total of 45 minutes on this case including meeting with the patient, reviewing lab work, reviewing the chart, nursing report, orders, and documentation. (1) Unspecified mood [affective] disorder: (2) Psychotic disorder: (3) Anxiety and depression: (4) Nightmares: (5) Cannabis use with anxiety disorder: (6) Alcohol use disorder: Plan 11/30/2023: Start doxazosin 1 mg at bedtime. Questionnaires: Dissociative symptoms scale, international trauma questionnaire, adverse child experiences scale. 11/29/2023: -Start Trazodone 50mg HS with additional 50mg prn for insomnia 11/28/2023: The patient was admitted to the [facility] ([facility] unit) on q15 min checks (behavioral with suicide precautions) for safety. The patient will participate in group, recreational, and milieu therapies and will be offered additional individual and family sessions as clinically appropriate. -Medications: * Start Abilify 5mg qAM po & 2.5mg BID po prn * c/w Fluoxetine 60mg daily -Mood Disorder Questionnaire -Fasting lipid panel and HbA1c -Will need outpatient psychiatric provider, therapist Inventory Assets Strengths: supportive relationships, willing to get treatment Needs: safety and stabilization, medication adjustment, additional coping skills, increased outpatient services Suicide Risk Level Suicide Risk Level: High-Moderate (q15 min suicide checks) (depression with mixed mood symptoms, psychosis and significant guilt and intermittent SI but feels safe in the hospital and feels able to ask for support) Risk Factors Assessment Male: No : Yes Do You Have Access To A Gun?: No Health Problems: No Mental Health Diagnoses: Yes Substance Use Disorders: Yes (hx of alcohol use d/o, cannabis use) Previous Attempt: Yes Family History of Suicide: No Previous Psychiatric Hospitalization: Yes Hopelessness: Yes Protective Factors Assessment Yazdanism Beliefs: Yes : Yes Employed: Yes (Realtor) Stable Relationships: Yes Supportive Family: Yes Good Rapport with Provider: Yes Interval History Identifying Information ARUNA CROCKETT is a 58-year-old woman who currently lives in [place] with her , has a history of BPAD and alcohol use disorder, and was admitted on 11/27/23 16:56 on a 201 voluntary commitment for worsening anxiety, SI and lack of sleep and appetite with auditory hallucinations and difficulty functioning. Chief Complaint "No sense of time" Review of Systems Sleep Information Total Hours of Sleep: 6.5 Meal Information Percent Meal Consumed - Breakfast: 100 Percent Meal Consumed - Lunch: 100 Percent Meal Consumed - Dinner: 100 Subjective Subjective Patient was seen & assessed and interval progress reviewed with treatment team nursing and social work Patient complains of having vivid dreams and poor sleep. She wakes up in sweats 2-3 times a week after distressing dream and has associated shortness of breath. Complains of recent poor self-care and keiry with marijuana and alcohol. Says marijuana makes her more relaxed and that alcohol helps her escape her problems. Smokes daily marijuana through weeping throughout the day. Says alcohol use is "on/off" and related to stressors. Reports longest sobriety of alcohol was 10 years from ; reported good mood during that period of sobriety. Complains of generalized chest tightness and pressure throughout the day with no associated trigger. Reports past medical workup for the chest tightness was normal. Denies having flashbacks from potential trauma triggers. Reports feeling from her body as if in a dreamlike state up to 10 minutes at a time and is not present to others. She is the oldest of 2 siblings with a younger brother. When she was 5 years of age her younger sister due to a defect. Father was in the [place] War and left the family to be in the [employer]. She often felt sheltered growing up and was isolated. She denies history of sexual or physical abuse. Has been on fluoxetine for the past 10 years. Physical Exam Mental Examination Appearance: Well Groomed Eye Contact: Maintains Eye Contact Motor Behavior: Unremarkable Speech: Normal Mood: Euthymic Affect: Anxious, Appropriate and Constricted Thought Process: Intact and Linear Thought Content: Intact Hallucinations: None Insight: Fair Judgement: Poor (to limited) Vital Signs (Past 24 Hours) Last Vital Signs Temp 36.8 C 11/30/23 06:32 Pulse 61 11/30/23 06:33 Resp 16 11/30/23 06:32 BP 125/84 11/30/23 06:33 Pulse Ox 98 11/27/23 17:28 O2 Del Method Room Air 11/27/23 17:28 Results & Data ([facility]) Current Inpatient Medications Current Inpatient Medications: Current Inpatient Medications Acetaminophen (Acetaminophen 325 Mg Tab) 650 mg PO Q4H PRN PRN Reason: Headache or Minor Fever Stop: 12/27/23 17:56 Last Admin: 11/29/23 09:53 Dose: 650 mg Al Hydrox/Mg Hydrox/Simethicone (Aluminum/Magnesium Susp 30 Ml Udc) 30 ml PO Q4H PRN PRN Reason: GI Upset Stop: 12/27/23 17:56 Aripiprazole (Aripiprazole 5 Mg Tab) 5 mg PO QAM KARON Stop: 12/28/23 11:44 Last Admin: 11/30/23 10:02 Dose: 5 mg Aripiprazole (Aripiprazole 1 Mg/Ml Oral Soln 150 Ml Btl) 2.5 mg PO BID PRN PRN Reason: psychosis Stop: 12/28/23 11:41 Bismuth Subsalicylate (Bismuth Subsalicylate 262 Mg Chew) 2 tab PO Q30M PRN PRN Reason: Loose Stool/Diarrhea Stop: 12/27/23 17:56 Doxazosin Mesylate (Doxazosin Mesylate 1 Mg Tab) 1 mg PO HS KARON Stop: 12/30/23 21:59 Fluoxetine HCl (Fluoxetine Hcl 20 Mg Cap) 60 mg PO DAILY KARON Stop: 12/28/23 10:29 Last Admin: 11/30/23 10:02 Dose: 60 mg Hydroxyzine HCl (Hydroxyzine Hcl 25 Mg Tab) 50 mg PO HSZ PRN PRN Reason: Insomnia Stop: 12/27/23 17:56 Hydroxyzine HCl (Hydroxyzine Hcl 25 Mg Tab) 25 mg PO Q4H PRN PRN Reason: Anxiety Stop: 12/27/23 17:56 Last Admin: 11/28/23 18:06 Dose: 25 mg Magnesium Hydroxide (Magnesium Hydroxide Susp 30 Ml Udc) 30 ml PO DAILY PRN PRN Reason: Constipation Stop: 12/27/23 17:56 Sodium Chloride (Sodium Chloride 0.65% Na Soln 45 Ml ([place])) 1 - 2 sprays NA PRN PRN PRN Reason: Nasal Dryness/Congestion Stop: 12/27/23 17:56 Topiramate (Topiramate 50 Mg Tab) 50 mg PO BID KARON Stop: 12/28/23 10:29 Last Admin: 11/30/23 10:02 Dose: 50 mg Trazodone HCl (Trazodone Hcl 50 Mg Tab) 50 mg PO HS KARON Stop: 12/29/23 21:59 Last Admin: 11/29/23 21:52 Dose: 50 mg Trazodone HCl (Trazodone Hcl 50 Mg Tab) 50 mg PO HS PRN PRN Reason: insomnia Stop: 12/29/23 21:59 Mental Health & Subst Abuse Tx Psychiatrist Name of Psychiatrist: Richard Bailey Psychiatrist's Date Of Appointment With Psychiatric Provider: 12/09/23Saturday Time of Appointment with Psychiatrist: 9:30am Psychiatric Appointment Comment: please see patient questionairre in your email. Arrival is at 9:30am Therapist Name of Therapist: Waldo Burt Therapist's Date of Therapist Appointment: 03/17/24 Time of Therapist Appointment: 11:00am Therapy Appointment Comment: Enter through the right side of the building. Will e-mail intake form Mend Worker Name of Mend Worker: N/A Post Discharge Appointments Primary Care Physician Name Of Family Doctor/PCP: Dr. Franco
[2023-11-30] MEDS: DOXAZOSIN MESYLATE 1 MG TAB PO SCH (21:10)
[2023-12-01 06:35] VITALS: TEMP 98.1
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
[2023-12-01] MEDS: DOXAZosin MESYLATE TAB 2 MG TAB PO SCH (21:05)
[2023-12-02] MEDS: POLYETHYLENE (MIRALAX) 17 GM PACK PO ONE (12:11)
[2023-12-02] MEDS: DOCUSATE SODIUM 100 MG CAP PO SCH (12:11)
[2023-12-02 13:34] VITALS: BP 125/84; PULSE 66
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
== END 2023-12-02 16:05 | disposition home or self-care (01) | DRG 880 ==
LOC: ED 11:27 → SUATTDRO 16:56 → 3S 16:56